=== PATIENT | female | born 1980 | race Caucasian/White ===

== ENCOUNTER 2020-10-24 19:11 | Emergency (ER) | payer OTHER, SELFPAY ==
[2020-10-24 19:20] VITALS: BP 148/100; PULSE 97; RESP 16; TEMP 37.1; O2SAT 99
--- NOTE | 2020-10-24 19:42 | ED.GENADULT ---
HPI - General Adult General Chief complaint: Eye Problems Stated complaint: pink eye Time Seen by Provider: 10/24/20 19:42 Source: patient Mode of arrival: ambulatory Limitations: no limitations History of Present Illness HPI narrative: 40-year-old female patient presents to the [facility] with complaints of left eye redness and irritation. Her granddaughter that is been staying with her recently was diagnosed with bilateral pinkeye and she has developed symptoms now for the past 2 days. Patient complaining of itchiness, watery eye, blurred vision, redness. Denies fevers, body aches or chills. Related Data Allergies Allergy/AdvReac Type Severity Reaction Status Date / Time No Known Allergies Allergy Verified 10/24/20 19:33 Review of Systems Review of Systems: Narrative: CONSTITUTIONAL: Denies fever, chills, or sweats. EYES: Denies visual changes, positive left eye redness, and discharge. ENT: Denies rhinorrhea, congestion, sore throat, or otalgia. CARDIOVASCULAR: Denies chest pain, palpitations, or edema. RESPIRATORY: Denies cough or dyspnea. GASTROINTESTINAL: Denies abdominal pain, nausea, vomiting, or diarrhea. GENITOURINARY: Denies dysuria or hematuria. SKIN: Denies rash or itching. MUSCULOSKELETAL: Denies back pain, joint pain, or myalgia. NEUROLOGIC: Denies headache, numbness, or weakness. PSYCHIATRIC: Denies anxiety or depression. [facility] Past Medical History Medical History (Updated 10/24/20 @ 19:53 by NAINA Ramirez) Anxiety Bipolar disorder COPD (chronic obstructive pulmonary disease) Endometriosis Hypertension Substance use Recovering heroin addict Surgical History Surgical History (Updated 10/24/20 @ 19:44 by NAINA Ramirez) H/O tubal ligation History of hysterectomy Comments At the time of my signature I agree with nursing past medical history, surgical, social, and family history. There is no relevant family history pertinent to the presenting complaint. Exam Narrative: Exam Narrative: GENERAL: Well-appearing, well-nourished, and in no acute distress. HEAD: Normocephalic, atraumatic. EYES: PERRLA and EOM intact without limitation or complaint of pain, no periorbital soft tissue swelling ,no erythema, warmth or tenderness noted, no obvious deformity. No crusting or swelling.clear tearing and draining from the left eye.No photophobia. No nystagmus No FB or lesion on lid eversion. Corneas grossly clear, no obvious FB or hyphens/hypopyon. Erythemic injection to left sclera. Lids and lashes with clear discharge. ENT: Nares clear, no rhinorrhea or epistaxis. Mucous membranes moist. NECK: Supple. No lymphadenopathy CHEST: Clear to auscultation. No respiratory distress. HEART: Regular rate and rhythm. No murmur heard. Normal peripheral pulses. ABDOMEN: Soft, nontender, nondistended, normal active bowel sounds. EXTREMITIES: Normal range of motion. No edema. SKIN: Warm, dry, no rash. NEURO: No focal deficits. Alert and oriented x3. Course Vital Signs Vital signs: Vital Signs Temperature 37.1 C 10/24/20 19:20 Pulse Rate 97 10/24/20 19:20 Respiratory Rate 16 10/24/20 19:20 Blood Pressure 148/100 H 10/24/20 19:20 Pulse Oximetry 99 10/24/20 19:20 Temperature 37.1 C 10/24/20 19:20 Pulse Rate 97 10/24/20 19:20 Respiratory Rate 16 10/24/20 19:20 Blood Pressure 148/100 H 10/24/20 19:20 Pulse Oximetry 99 10/24/20 19:20 Vital signs reviewed The patient has been informed that they may have pre-hypertension or Hypertension based on a BP reading in the department. I recommend that the patient call the primary care provider listed on their discharge instructions or a physician of their choice this week to arrange follow up for further evaluation of possible pre-hypertension or Hypertension Medical Decision Making Differential Diagnosis Differential Diagnosis: Differential diagnosis: Conjunctivitis, foreign body, corneal ulcer, Keratitis, dendritic lesions, corneal keila
== END 2020-10-24 20:06 | disposition home or self-care (01) ==
PROVIDERS: Emergency Provider Nurse Practitioner Family
DX: H10.9 Unspecified conjunctivitis (principal); J44.9 Chronic obstructive pulmonary disease, unspecified; N80.9 Endometriosis, unspecified; I10 Essential (primary) hypertension
CPT/HCPCS: 99203; G0463